=== PATIENT | male | born 1990 | race Caucasian/White ===

== ENCOUNTER 2017-06-09 13:27 | Emergency (ER) | payer BC ==
[2017-06-09 13:37] VITALS: BP 140/80
[2017-06-09] MEDS ORDERED: Albuterol/Ipratropium 3.0-0.5 MG/3 ML Neb Soln NEB ONE (13:41)
[2017-06-09] MEDS ORDERED: methylPREDNISolone Sodium Succinate 125 MG/2 ML SDV IM ONE (13:42)
--- NOTE | 2017-06-09 13:47 | EDM.PDOC ---
ED HPI GENERAL MEDICAL PROBLEM - General Chief Complaint: General Stated Complaint: dry cough, sinus pressure, throwing up, headache Time Seen by Provider: 06/09/17 13:41 Source of Information: Reports: Patient History Limitations: Reports: No Limitations - History of Present Illness INITIAL COMMENTS - FREE TEXT/NARRATIVE: 4 day history of sinus congestion, cough, body aches, irritated throat. Significant other developed similar symptoms yesterday. Smoker, 1ppd. Coughed so hard last night that he developed post-tussive emesis. No history of asthma. Patient is overweight and has HTN. Does not know exact dose of Lisinopril he uses. Feels more short of breath and has been wheezing. OTC meds do not help, including cough medicines. - Related Data Allergies Allergy/AdvReac Type Severity Reaction Status Date / Time Penicillins Allergy Hives Verified 06/09/17 13:29 Home Meds: Home Meds Lisinopril 60 mg PO DAILY 06/09/17 [History] Venlafaxine HCl [Venlafaxine ER] 1 cap PO DAILY 06/09/17 [History] Venlafaxine HCl [Venlafaxine ER] 1 cap PO DAILY 06/09/17 [History] Past Medical History Cardiovascular History: Reports: Hypertension Endocrine/Metabolic History: Reports: Obesity/BMI 30+ Social & Family History - Tobacco Use Smoking Status *Q: Current Every Day Smoker Packs/Tins Daily: 1 ED ROS GENERAL - Review of Systems Review Of Systems: See Below Constitutional: Reports: Malaise. Denies: Fever, Chills, Weakness, Night Sweats , Diaphoresis, Decreased Appetite, Weight Loss HEENT: Reports: Rhinitis, Sinus Problem, Throat Pain. Denies: Dental Pain, Ear Discharge, Ear Pain, Eye Discharge, Eye Pain, Nose Pain, Throat Swelling, Vertigo, Vision Change Respiratory: Reports: Shortness of Breath, Wheezing, Cough. Denies: Pleuritic Chest Pain, Sputum, Hemoptysis Cardiovascular: Reports: No Symptoms. Denies: Chest Pain, Lightheadedness GI/Abdominal: Reports: Vomiting (Post-tussive). Denies: Abdominal Pain, Constipation, Diarrhea, Hematemesis, Hematochezia, Nausea : Reports: No Symptoms Musculoskeletal: Reports: Other (generalized body aches) Skin: Reports: No Symptoms Neurological: Reports: No Symptoms Psychiatric: Reports: No Symptoms Hematologic/Lymphatic: Reports: No Symptoms ED EXAM, GENERAL - Physical Exam Exam: See Below Exam Limited By: No Limitations General Appearance: Alert, WD/WN, No Apparent Distress, Obese Eye Exam: Bilateral Eye: EOMI, PERRL Ears: Normal External Exam, Normal Canal, Hearing Grossly Normal, Other (both ears almost completely blocked by cerumen, TMs barely visable, no obvious erythema or fluid note. ) Nose: Normal Inspection. No: Nasal Swelling, Nasal Drainage Throat/Mouth: Normal Lips, Normal Gums, Normal Voice, No Airway Compromise, Other (very mild throat erythema, no exudate) Head: Atraumatic, Normocephalic Neck: Normal Inspection, Supple, Non-Tender, Full Range of Motion. No: Lymphadenopathy (L), Lymphadenopathy (R) Respiratory/Chest: No Respiratory Distress, Wheezing (mild, throughout all lung tobar). No: Crackles, Rales, Rhonchi, Stridor, Accessory Muscle Use, Retractions Cardiovascular: Regular Rate, Rhythm, No Murmur Peripheral Pulses: 2+: Radial (L), Radial (R) GI/Abdominal: Normal Bowel Sounds, Soft, Non-Tender, No Distention (Male) Exam: Deferred Rectal (Males) Exam: Deferred Back Exam: Normal Inspection. No: CVA Tenderness (L), CVA Tenderness (R), Muscle Spasm, Paraspinal Tenderness, Vertebral Tenderness Extremities: Normal Inspection, Normal Range of Motion, Normal Capillary Refill Neurological: Alert, Oriented, Normal Cognition, Normal Gait, No Motor/Sensory Deficits Psychiatric: Normal Affect, Normal Mood Skin Exam: Warm, Dry, Intact, Normal Color Course - Vital Signs Last Recorded V/S: Last Vital Signs Temp 36.9 C 06/09/17 13:36 Pulse 96 06/09/17 14:25 Resp 19 06/09/17 14:25 BP 140/80 06/09/17 13:36 Pulse Ox 93 L 06/09/17 14:25 - Orders/Labs/Meds Orders: Active Orders 24 hr Category Date Time Status RT Aerosol Therapy [RC] ASDIRECTED Care 06/09/17 13:41 Active Meds: Medications Discontinued Medications Generic Name Dose Route Start Last Admin Trade Name Freq PRN Reason Stop Dose Admin Albuterol/Ipratropium 3 ml 06/09/17 13:41 06/09/17 13:56 Duoneb 3.0-0.5 Mg/3 Ml NEB 06/09/17 13:42 3 ml ONETIME ONE Administration Methylprednisolone Sodium Succinate 125 mg 06/09/17 13:42 06/09/17 13:56 Solu-Medrol IM 06/09/17 13:43 125 mg ONETIME ONE Administration - Re-Assessments/Exams Free Text/Narrative Re-Assessment/Exam: 06/09/17 13:48 Viral respiratory illness suspected. Smoking cessation encouraged. Patient given neb in ER as well as Solu-medrol. Will send home with cough medication, albuterol MDI, and prednisone from ER. He is to follow up as needed. Extensive precautions discussed prior to discharge. Free Text/Narrative Re-Assessment/Exam: 06/09/17 14:18 Much improved after neb. Wheezing cleared completely. Patient O2 sats 93% when rechecked. He has no sensation of shortness of breath. Lower sats likely combination of acute respiratory illness, large body habitus, and smoking history. Again patient cautioned to return to ER for recheck if he has any sensation of worsening breathing. Departure - Departure Time of Disposition: 15:00 Disposition: Home, Self-Care 01 Condition: Good Clinical Impression: Viral respiratory illness, Bronchitis - Discharge Information Forms: ED Department Discharge Additional Instructions: Follow up Sunday or Sunday at your clinic if symptoms have not improved. Follow up in the ER if you have sudden worsening problems, such as worsening shortness of breath. Use inhaler 4 times a day for the next 7 days. You may use it every 4-6 hours as needed for cough/shortness of breath otherwise. Start Prednisone tomorrow, 4 pills daily for 5 days. Use cough medication as prescribed. Avoid using alcohol while taking the cough medication. - My Orders Last 24 Hours: My Active Orders 06/09/17 13:41 RT Aerosol Therapy [RC] ASDIRECTED - Assessment/Plan Last 24 Hours: My Active Orders 06/09/17 13:41 RT Aerosol Therapy [RC] ASDIRECTED
== END 2017-06-09 15:00 | disposition home or self-care (01) ==
LOC: LL.ED 13:27
DX: J40 Bronchitis, not specified as acute or chronic (principal); B34.9 Viral infection, unspecified; I10 Essential (primary) hypertension; F17.210 Nicotine dependence, cigarettes, uncomplicated; E66.9 Obesity, unspecified; Z88.0 Allergy status to penicillin; Z68.41 Body mass index [BMI] 40.0-44.9, adult
CPT/HCPCS: 94640; 96372; 99283; J2930

== ENCOUNTER 2017-07-23 01:13 | Emergency (ER) | payer BC, OTHER ==
[2017-07-23] MEDS ORDERED: Sodium Chloride 0.9% 10 ML Syringe FLUSH PRN (01:21)
[2017-07-23] MEDS ORDERED: Ondansetron 4 MG/2 ML SDV IVPUSH ONE (01:37)
[2017-07-23] MEDS ORDERED: Loperamide 2 MG Tab PO ONE (01:38)
--- NOTE | 2017-07-23 01:39 | EDM.PDOC ---
ED HPI GENERAL MEDICAL PROBLEM - General Chief Complaint: Chest Pain Stated Complaint: CP, dizziness, loose stools Time Seen by Provider: 07/23/17 01:28 Source of Information: Reports: Patient History Limitations: Reports: No Limitations - History of Present Illness INITIAL COMMENTS - FREE TEXT/NARRATIVE: Patient brought here from [facility] by EMS after he complained of feeling lightheaded with chest discomfort. Patient notes that he has not been feeling well over the night hours. He developed the lightheaded feeling first, followed by abdominal discomfort. Additionally he is generally achy. He did have centralized chest discomfort but that is now gone. No SOB. [place] warm at one point. No HEENT/Resp complaints. Has had three loose stools. No changes. No neuro changes. Abdomen Pain Score (Numeric/FACES): 7 - Related Data Allergies Allergy/AdvReac Type Severity Reaction Status Date / Time Penicillins Allergy Hives Verified 06/09/17 13:29 Home Meds: Home Meds Lisinopril 60 mg PO DAILY 06/09/17 [History] Venlafaxine HCl [Venlafaxine ER] 1 cap PO DAILY 06/09/17 [History] Venlafaxine HCl [Venlafaxine ER] 1 cap PO DAILY 06/09/17 [History] Aspirin [Pravin Chewable Aspirin] 81 mg PO ONETIME 07/23/17 [History] Past Medical History Cardiovascular History: Reports: Hypertension Respiratory History: Reports: COPD Gastrointestinal History: Reports: Irritable Bowel Syndrome (suspected) Endocrine/Metabolic History: Reports: Obesity/BMI 30+ Social & Family History - Family History Cardiac: Reports: CAD, High Cholesterol, Hypertension, [place] Respiratory: Reports: COPD Endocrine/Metabolic: Reports: Diabetes, type II, Obesity/MBI 30+ - Tobacco Use Smoking Status *Q: Current Every Day Smoker Years of Tobacco use: 7 Packs/Tins Daily: 1 Second Hand Smoke Exposure: Yes - Caffeine Use Caffeine Use: Reports: Soda - Recreational Drug Use Recreational Drug Use: No ED ROS GENERAL - Review of Systems Review Of Systems: See Below Constitutional: Reports: Other (one hot flash episode). Denies: Fever, Chills, Weakness, Fatigue, Night Sweats, Diaphoresis, Decreased Appetite, Weight Loss, Weight Gain HEENT: Denies: Ear Discharge, Ear Pain, Eye Discharge, Rhinitis, Sinus Problem, Throat Pain, Throat Swelling, Vertigo, Vision Change Respiratory: Reports: No Symptoms Cardiovascular: Reports: Chest Pain, Lightheadedness. Denies: Dyspnea on Exertion, Edema, Palpitations, Syncope GI/Abdominal: Reports: Abdominal Pain, Diarrhea, Nausea. Denies: Black Stool, Bloody Stool, Decreased Appetite, Vomiting : Reports: No Symptoms Musculoskeletal: Reports: Other (generalized achiness) Skin: Reports: No Symptoms Neurological: Reports: Dizziness. Denies: Confusion, Headache, Numbness, Paresthesia, Difficulty Walking, Weakness, Change in Speech, Gait Disturbance ED EXAM, GENERAL - Physical Exam Exam: See Below Exam Limited By: No Limitations General Appearance: Alert, WD/WN, No Apparent Distress Eye Exam: Bilateral Eye: EOMI, PERRL, Other (no nystagmus noted. ) Ears: Normal External Exam, Normal Canal, Hearing Grossly Normal, Other (TMs completely blocked by impacted wax) Nose: Normal Inspection Throat/Mouth: Normal Inspection, Normal Lips, Normal Oropharynx, Normal Voice, No Airway Compromise Head: Atraumatic, Normocephalic Neck: Normal Inspection, Supple, Non-Tender, Full Range of Motion Respiratory/Chest: No Respiratory Distress, Lungs Clear, Normal Breath Sounds, No Accessory Muscle Use, Chest Non-Tender Cardiovascular: Normal Peripheral Pulses, Regular Rate, Rhythm, No Edema, No Murmur Peripheral Pulses: 2+: Radial (L), Radial (R) GI/Abdominal: Normal Bowel Sounds (slightly increased), Soft, No Distention, Tender (mild discomfort with palpation above umbilicus). No: Guarding, Rigid, Rebound (Male) Exam: Deferred Rectal (Males) Exam: Deferred Back Exam: Normal Inspection. No: CVA Tenderness (L), CVA Tenderness (R), Muscle Spasm, Paraspinal Tenderness, Vertebral Tenderness Extremities: Normal Inspection, Normal Range of Motion, Non-Tender, No Pedal Edema, Normal Capillary Refill Neurological: Alert, Oriented, Normal Cognition, Normal Gait, Normal Reflexes, No Motor/Sensory Deficits Psychiatric: Normal Affect, Normal Mood Skin Exam: Warm, Dry, Intact, Normal Color EKG INTERPRETATION EKG Date: 07/23/17 Time: 01:23 Rhythm: NSR Rate (Beats/Min): 76 [place]: Normal P-Wave: Present QRS: Normal ST-T: Normal QT: Normal Comparison: NA - No Prior EKG Course - Vital Signs Last Recorded V/S: Last Vital Signs Temp 36.7 C 07/23/17 01:35 Pulse 97 07/23/17 01:35 Resp 12 07/23/17 01:35 BP 138/79 07/23/17 01:35 Pulse Ox 98 07/23/17 01:35 - Orders/Labs/Meds Orders: Active Orders 24 hr Category Date Time Status EKG Documentation Completion [RC] ASDIRECTED Care 07/23/17 01:23 Active Abdomen Series w Chest 1V [CR] Stat Exams 07/23/17 01:48 Ordered CKMB [CHEM] Stat Lab 07/23/17 01:20 Received COMPREHENSIVE METABOLIC PN,CMP [CHEM] Stat Lab 07/23/17 01:20 Received TROPONIN I [CHEM] Stat Lab 07/23/17 01:20 Received UA W/MICROSCOPIC [URIN] Stat Lab 07/23/17 01:53 Uncollected Sodium Chloride 0.9% [Saline Flush] Med 07/23/17 01:21 Active 10 ml FLUSH ASDIRECTED PRN Saline Lock Insert [OM.PC] Routine Oth 07/23/17 01:21 Ordered EKG 12 Lead [EK] Routine Ther 07/23/17 01:21 Ordered Medication Orders Sodium Chloride (Saline Flush) 10 ml FLUSH ASDIRECTED PRN PRN Reason: Keep Vein Open Last Admin: 07/23/17 01:41 Dose: 10 ml Labs: Laboratory Tests 07/23/17 07/23/17 07/23/17 Range/Units 01:20 01:20 01:20 WBC 9.2 (4.0-10.2) K/uL RBC 5.01 (4.33-5.41) M/uL Hgb 15.1 (13.1-16.8) g/dL Hct 43.5 (39.0-49.0) % MCV 86.8 (84.0-98.0) fL MCH 30.1 (28.2-33.3) pg MCHC 34.7 (31.7-36.0) g/dL RDW 12.2 (11.2-14.1) % Plt Count 195 (150-350) K/uL Neut % (Auto) 51.7 (45.0-80.0) % Lymph % (Auto) 37.4 (10.0-50.0) % [place] % (Auto) 7.8 (2.0-14.0) % Eos % (Auto) 2.8 (0.0-5.0) % Baso % (Auto) 0.3 (0.0-2.0) % Neut # (Auto) 4.74 (1.40-7.00) K/uL Lymph # (Auto) 3.43 (0.50-3.50) K/uL [place] # (Auto) 0.72 (0.00-1.00) K/uL Eos # (Auto) 0.26 (0.00-0.50) K/uL Baso # (Auto) 0.03 (0.00-0.20) K/uL D-Dimer, Quantitative < 100 (0-400) ng/mL Sodium 141 (136-145) mmol/L Potassium 4.3 (3.5-5.1) mmol/L Chloride 107 (98-107) mmol/L Carbon Dioxide 26.0 (21.0-32.0) mmol/L BUN 18 (7-18) mg/dL Creatinine 0.86 (0.51-1.17) mg/dL Est Cr Clr Drug Dosing 154.21 mL/min Estimated GFR (MDRD) > 60 mL/min Glucose 94 (74-106) mg/dL Calcium 9.0 (8.5-10.1) mg/dL Total Bilirubin 0.4 (0.2-1.0) mg/dL AST 43 H (15-37) U/L ALT 97 H (12-78) U/L Alkaline Phosphatase 64 (46-116) IU/L CK-MB (CK-2) 5.20 H* (0.00-3.60) ng/mL Troponin I 0.000 (0.000-0.056) ng/mL Total Protein 7.8 (6.4-8.2) g/dL Albumin 4.2 (3.4-5.0) g/dL Meds: Medications Generic Name Dose Route Start Last Admin Trade Name Freq PRN Reason Stop Dose Admin Sodium Chloride 10 ml 07/23/17 01:21 07/23/17 01:41 Saline Flush FLUSH 10 ml ASDIRECTED PRN Administration Keep Vein Open Discontinued Medications Generic Name Dose Route Start Last Admin Trade Name Freq PRN Reason Stop Dose Admin Ketorolac Tromethamine 30 mg 07/23/17 01:58 07/23/17 02:15 Toradol IVPUSH 07/23/17 01:59 30 mg ONETIME ONE Administration Loperamide HCl 4 mg 07/23/17 01:38 07/23/17 01:50 Imodium Ad PO 07/23/17 01:39 4 mg ONETIME ONE Administration Ondansetron HCl 4 mg 07/23/17 01:37 07/23/17 01:40 Zofran IVPUSH 07/23/17 01:38 4 mg ONETIME ONE Administration - Re-Assessments/Exams Free Text/Narrative Re-Assessment/Exam: 07/23/17 01:58 Zofran and Imodium given to patient. Denies chest pain/SOB. Comfortable in appearance but complains of 7/10 abdominal pain. Free Text/Narrative Re-Assessment/Exam: 07/23/17 02:35 Patient feels improved after Zofran and Toradol. Noted to have mild increase AST and ALT. Troponin zero. CKMB above normal. Elevated CKMB could have contribution from physical exertion at work and current generalized body aches. EKG unremarkable for acute change. DDimer negative. CBC and Chem otherwise unremarkable. Vital signs stable Patient says that he is under stress and wonders if it is part of the reason he does not feel good. He recently started working at [employer] and said that it this point he is not really liking his job. Stress may be factor in presentation. Given the generalized aches/abdominal discomfort/multiple loose stools/lightheadedness, it is also very likely that he has gastroenteritis. Patient says that he usually has a sore gut about three times a week, but did not say that there was associated loose stools. No official diagnosis of IBS or other bowel disorder. Recommendation for elimination diet and dietary change made, however patient was not interested in changing his diet. Recommendation made for admission and serial troponins/CKMB to more completely rule out cardiac contribution. Patient declined and said that he wished to return home. He is to follow up with his regular provider. He was taken off work for rest of tonight and next shift. He may return to full duty after that. If he is still having symptoms of Sunday, he is to get rechecked by his provider/clinic. Departure - Departure Time of Disposition: 02:29 Disposition: Home, Self-Care 01 Condition: Good Clinical Impression: Gastroenteritis, Stress Impacted ear wax Qualifiers: Laterality: bilateral Qualified Code(s): H61.23 - Impacted cerumen, bilateral - Discharge Information Instructions: Nonspecific Chest Pain, [id number] Forms: ED Department Discharge Additional Instructions: Home, rest. Watch for symptom changes. If this does not follow a normal viral course follow up for re-evaluation. If chest pain or shortness of breath develops, follow up in ER. Dietary recommendations strongly encouraged, as is smoking cessation. Make appointment to get ears irrigated. Follow up at primary clinic Sunday if symptoms persist and get rechecked. - My Orders Last 24 Hours: My Active Orders 07/23/17 01:20 CKMB [CHEM] Stat COMPREHENSIVE METABOLIC PN,CMP [CHEM] Stat TROPONIN I [CHEM] Stat 07/23/17 01:21 Sodium Chloride 0.9% [Saline Flush] 10 ml FLUSH ASDIRECTED PRN Saline Lock Insert [OM.PC] Routine EKG 12 Lead [EK] Routine 07/23/17 01:23 EKG Documentation Completion [RC] ASDIRECTED 07/23/17 01:48 Abdomen Series w Chest 1V [CR] Stat 07/23/17 01:53 UA W/MICROSCOPIC [URIN] Stat - Assessment/Plan Last 24 Hours: My Active Orders 07/23/17 01:20 CKMB [CHEM] Stat COMPREHENSIVE METABOLIC PN,CMP [CHEM] Stat TROPONIN I [CHEM] Stat 07/23/17 01:21 Sodium Chloride 0.9% [Saline Flush] 10 ml FLUSH ASDIRECTED PRN Saline Lock Insert [OM.PC] Routine EKG 12 Lead [EK] Routine 07/23/17 01:23 EKG Documentation Completion [RC] ASDIRECTED 07/23/17 01:48 Abdomen Series w Chest 1V [CR] Stat 07/23/17 01:53 UA W/MICROSCOPIC [URIN] Stat
[2017-07-23 01:56] LABS: CHLORIDE,CL 107 mmol/L (98-107); SODIUM,NA 141 mmol/L (136-145)
[2017-07-23] MEDS ORDERED: Ketorolac 30 MG/ML SDV IVPUSH ONE (01:58)
[2017-07-23 03:32] VITALS: BP 123/77
== END 2017-07-23 02:50 | disposition home or self-care (01) ==
LOC: LL.ED 01:13
DX: K52.9 Noninfective gastroenteritis and colitis, unspecified (principal); H61.23 Impacted cerumen, bilateral; F43.9 Reaction to severe stress, unspecified; I10 Essential (primary) hypertension; J44.9 Chronic obstructive pulmonary disease, unspecified; F17.210 Nicotine dependence, cigarettes, uncomplicated; Z79.82 Long term (current) use of aspirin; Z79.899 Other long term (current) drug therapy; Z88.0 Allergy status to penicillin
CPT/HCPCS: 36415; 74022; 80053; 82553; 84484; 85025; 85379; 93005; 96374; 96375; 99285; A9270; J1885; J2405; J7050

== ENCOUNTER 2020-07-24 06:54 | Emergency (ER) | payer BC, MEDICAID, OTHER ==
[2020-07-24 07:04] VITALS: BP 140/89; PULSE 104
--- NOTE | 2020-07-24 07:25 | EDM.PDOC ---
ED HPI GENERAL MEDICAL PROBLEM - General Chief Complaint: General Stated Complaint: CHEST CONGESTION, DRY COUGH, LUMP ON NECK Time Seen by Provider: 07/24/20 07:10 Source of Information: Reports: Patient History Limitations: Reports: No Limitations - History of Present Illness INITIAL COMMENTS - FREE TEXT/NARRATIVE: He presents to the emergency department for evaluation of a lump on the back of his neck. He has a tender mass the base of the neck on the right side has been present for 5 days, gradually increasing in size. He has a history of infected cysts in the past that required I&D. It is painful when he moves his head and very sensitive to touch. He has not noted any drainage. Is also complaining of nonproductive cough for 5 days. He does get some posttussive dry heaves. Mild nasal congestion. No drainage. No sore throat. Mild sinus pressure. No chest pain or tightness. No shortness of breath. He was tested for Covid 2 weeks ago and was negative. His son was found to have viral pneumonia 5 days ago. 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 Neck Pain Score (Numeric/FACES): 5 - Related Data Allergies Allergy/AdvReac Type Severity Reaction Status Date / Time Penicillins Allergy Hives Verified 06/09/17 13:29 Home Meds: Home Meds Lisinopril 60 mg PO DAILY 06/09/17 [History] Venlafaxine HCl [Venlafaxine ER] 1 cap PO DAILY 06/09/17 [History] Venlafaxine HCl [Venlafaxine ER] 1 cap PO DAILY 06/09/17 [History] Albuterol [Ventolin HFA] 1 puff INH ASDIRECTED PRN 08/06/18 [History] buPROPion [buPROPion XL] 1 tab PO DAILY 08/06/18 [History] Past Medical History HEENT History: Reports: Impaired Vision Cardiovascular History: Reports: Hypertension Respiratory History: Reports: COPD Gastrointestinal History: Reports: Irritable Bowel Syndrome (suspected) Genitourinary History: Reports: None Musculoskeletal History: Reports: Back Pain, Chronic Neurological History: Reports: None Psychiatric History: Reports: Anxiety, Depression, Suicidal Ideation, Other (See Below) Other Psychiatric History: 2012- inpatient hospitalization suicidal ideation Endocrine/Metabolic History: Reports: Obesity/BMI 30+ Hematologic History: Reports: None Immunologic History: Reports: None Oncologic (Cancer) History: Reports: None Dermatologic History: Reports: None - Infectious Disease History Infectious Disease History: Reports: None - Past Surgical History HEENT Surgical History: Reports: Myringotomy w Tube(s) Musculoskeletal Surgical History: Reports: Other (See Below) Other Musculoskeletal Surgeries/Procedures:: lumbar surgery 2014 Social & Family History - Family History Cardiac: Reports: CAD, High Cholesterol, Hypertension, [place] Respiratory: Reports: COPD Endocrine/Metabolic: Reports: Diabetes, type II, Obesity/MBI 30+ - Caffeine Use Caffeine Use: Reports: Soda ED ROS GENERAL - Review of Systems Review Of Systems: See Below Constitutional: Denies: Fever, Chills HEENT: Reports: Sinus Problem. Denies: Ear Pain Respiratory: Reports: Cough. Denies: Shortness of Breath, Wheezing, Sputum Cardiovascular: Denies: Chest Pain, Edema, Palpitations Endocrine: Denies: Fatigue GI/Abdominal: Denies: Abdominal Pain, Nausea, Vomiting : Denies: Dysuria, Frequency Skin: Reports: Lumps (See HPI) Neurological: Denies: Dizziness, Headache Psychiatric: Denies: Anxiety, Depression ED EXAM, GENERAL - Physical Exam Exam: See Below Exam Limited By: No Limitations General Appearance: Alert, WD/WN Ears: Normal External Exam Nose: Normal Mucosa. No: Nasal Swelling Throat/Mouth: Normal Inspection, Normal Teeth, Normal Oropharynx, No Airway Compromise Head: Atraumatic, Normocephalic Neck: Full Range of Motion Respiratory/Chest: No Respiratory Distress, Lungs Clear, Normal Breath Sounds Cardiovascular: Regular Rate, Rhythm, No Murmur Skin Exam: Other (3 x 5 cm oval, raised, fluctuant, tender, reddened lump at the base of the neck slightly right of midline. This is consistent with an abscess.) Lymphatic: No Adenopathy Course - Vital Signs Text/Narrative:: Discussed options regarding the abscess and he did wish to proceed with the I&D. The area is cleansed with alcohol and infiltrated with 4 cc of 2% lidocaine with epinephrine. He was cleansed again. Incision was made with a #11 scalpel. A curved clamp was used for blunt dissection and a large amount of yellowish- green foul-smelling exudative material was removed. The cyst was irrigated with normal saline to clear blood tinged return. It was packed with iodoform gauze and a dressing applied. There were no complications. Last Recorded V/S: Last Vital Signs Temp 36.8 C 07/24/20 06:57 Pulse 104 H 07/24/20 06:57 Resp 20 07/24/20 06:57 BP 140/89 07/24/20 06:57 Pulse Ox 99 07/24/20 06:57 - Orders/Labs/Meds Meds: Medications Discontinued Medications Generic Name Dose Route Start Last Admin Trade Name Chris PRN Reason Stop Dose Admin Lidocaine/Epinephrine 20 ml 07/24/20 07:21 07/24/20 07:30 Xylocaine 2% With Epinephrine 1:100,000 INJECT 07/24/20 07:22 20 ml ONETIME ONE Administration Departure - Departure Time of Disposition: 07:55 Disposition: Home, Self-Care 01 Condition: Good Clinical Impression: Abscess of skin of neck, Viral URI, Viral respiratory illness - Discharge Information *PRESCRIPTION DRUG MONITORING PROGRAM REVIEWED*: No *COPY OF PRESCRIPTION DRUG MONITORING REPORT IN PATIENT ED: No Instructions: Skin Abscess, Incision and Drainage, Care After, Cough, Adult, [id number] Forms: ED Department Discharge Additional Instructions: He is encouraged to push fluids and can use an [id number] cough and cold medicine. He should return to the emergency department tomorrow morning for repacking of the cyst. Follow-up earlier with any problems. Sepsis Event Note (ED) - Evaluation Sepsis Screening Result: No Definite Risk - Focused Exam Vital Signs: Vital Signs Temp Pulse Resp BP Pulse Ox 07/24/20 06:57 36.8 C 104 H 20 140/89 99
[2020-07-24] MEDS: Lidocaine 2% with EPINEPHrine 1:100,000 20 ML MDV INJECT ONE (07:30)
== END 2020-07-24 08:10 | disposition home or self-care (01) ==
LOC: LL.ED 06:54
DX: L02.11 Cutaneous abscess of neck (principal); J06.9 Acute upper respiratory infection, unspecified; I10 Essential (primary) hypertension; J44.9 Chronic obstructive pulmonary disease, unspecified; F41.9 Anxiety disorder, unspecified; F32.9 Major depressive disorder, single episode, unspecified; E66.9 Obesity, unspecified; Z88.0 Allergy status to penicillin
CPT/HCPCS: 10060; 99283-25

== ENCOUNTER 2020-11-25 11:08 | Day surgery (SDC) | payer MEDICAID ==
[~2020-11-25 11:08] MED LIST: Ketamine 500 mg/10 ML MDV ONE; Midazolam 1 MG/ML 2 ML SDV ONE; Propofol 200 MG/20 ML SDV ONE
[2020-11-25] MEDS ORDERED: Sodium Chloride 0.9% 10 ML Syringe FLUSH PRN (11:15)
[2020-11-25] MEDS ORDERED: Lactated Ringers 1,000 ML IV SCH (11:15)
[2020-11-25] MEDS ORDERED: Glycopyrrolate 0.2 MG/ML SDV IVPUSH ONE (13:00)
[2020-11-25] MEDS ORDERED: Ketamine 500 mg/10 ML MDV IV ONE (13:00)
[2020-11-25] MEDS ORDERED: Lidocaine 2% 5 ML SDV ONE (13:00)
--- NOTE | 2020-11-25 13:00 | PCM.PN ---
- General Info Date of Service: 11/25/20 - Review of Systems Systems Review Comment:: 30-year-old male with recent significant unexplained weight loss and positive fit test is referred for EGD and colonoscopy. He is medically stable to proceed today. His recent history and physical is reviewed and no significant changes are noted. I have discussed the proposed upper and lower endoscopy with the patient. Risks such as but not limited to bleeding and GI injury reviewed. He agrees to proceed. - Patient Data Vitals - Most Recent: Last Vital Signs Temp 97.4 F 11/25/20 11:52 Pulse Resp 20 11/25/20 11:52 BP 116/68 11/25/20 11:52 Pulse Ox 96 11/25/20 11:52 Weight - Most Recent: 162.386 kg Lab Results Last 24 Hours: Laboratory Results - last 24 hr 11/25/20 Range/Units 11:49 POC Glucose 130 H (65-110) mg/dl Med Orders - Current: Current Medications Lactated Ringer's (Ringers, Lactated) 1,000 mls @ 125 mls/hr IV ASDIRECTED RODRIGUEZ Last Admin: 11/25/20 12:05 Dose: 125 mls/hr Documented by: Sodium Chloride (Saline Flush) 10 ml FLUSH ASDIRECTED PRN PRN Reason: Keep Vein Open Discontinued Medications Ketamine HCl (Ketalar) Confirm Administered Dose 500 mg .ROUTE .STK-MED ONE Stop: 11/25/20 08:59 Midazolam HCl (Versed 1 Mg/Ml) Confirm Administered Dose 4 mg .ROUTE .STK-MED ONE Stop: 11/25/20 08:59 Propofol (Diprivan 20 Ml) Confirm Administered Dose 600 mg .ROUTE .STK-MED ONE Stop: 11/25/20 08:59 - Patient Data Lab Results Last 24 hrs: Laboratory Results - last 24 hr 11/25/20 Range/Units 11:49 POC Glucose 130 H (65-110) mg/dl Sepsis Event Note - Focused Exam Vital Signs: Vital Signs Temp Resp BP Pulse Ox 11/25/20 11:52 97.4 F 20 116/68 96 - Problem List Review Problem List Initiated/Reviewed/Updated: Yes - My Orders Last 24 Hours: My Active Orders 11/25/20 11:15 Patient Status [ADT] Routine Blood Glucose Check, Bedside [RC] ONETIME Peripheral IV Care [RC] . DIRECTED Verify Patient Consent Obtain [RC] ASDIRECTED Lactated Ringers [Ringers, Lactated] 1,000 ml IV ASDIRECTED Sodium Chloride 0.9% [Saline Flush] 10 ml FLUSH ASDIRECTED PRN Peripheral IV Insertion Adult [OM.PC] Routine - Assessment Assessment:: Positive fit test Unexplained weight loss - Plan Plan:: EGD and colonoscopy
--- NOTE | 2020-11-25 13:57 | PCM.OPNOTE ---
- General Post-Op/Procedure Note Date of Surgery/Procedure: 11/25/20 Operative Procedure(s): EGD and Colonoscopy with Polypectomy Findings: Normal appearing EGD Small Sigmoid Colon Polyp Pre Op Diagnosis: Weight Loss. + FIT Test Post-Op Diagnosis: Normal EGD. Colon Polyp Anesthesia Technique: MAC Primary Surgeon: Jose Muñiz Pathology: Sigmoid Colon Polyp EBL in mLs: 0 Complications: None Condition: Good
--- NOTE | 2020-11-25 14:49 | OR ---
Date of Procedure: 11/25/2020 PREOPERATIVE DIAGNOSIS: Positive FIT test and weight loss. POSTOPERATIVE DIAGNOSIS: Normal upper endoscopy and sigmoid colon polyp. OPERATION PERFORMED: Esophagogastroduodenoscopy and colonoscopy with polypectomy. INDICATIONS FOR SURGERY: This 30-year-old male has experienced approximately 40 pounds weight loss, which was unexplained. He also has recently been identified to have a positive FIT test. FINDINGS: On upper endoscopy, the lining of the esophagus, stomach, and the duodenum appeared normal. No visible signs of bleeding or other lesions were identified. On colonoscopy, the patient did have one small sigmoid colon polyp, 6 mm in size, semipedunculated in shape and located approximately 20 cm from the anal verge. The remainder of the colon and terminal ileum appeared normal. DESCRIPTION OF PROCEDURE: The patient was taken to the operating room. He was given intravenous sedation, and with him in the left lateral decubitus position, the Olympus gastroscope was advanced through a mouth guard into the oral cavity. Under direct visualization, the scope was advanced through the oropharynx into the esophagus and then down through the esophagus, stomach, and into the duodenum, where examination to the fourth portion was performed. Carefully, the duodenum was examined and the scope was withdrawn back into the stomach where full examination including retroflexed examination of the fundus was carried out. The GE junction and esophagus were re-examined as the scope was removed. Attention was turned to colonoscopy. Digital rectal exam was performed showing no rectal masses. The Olympus colonoscope was inserted into the rectum. Retroflexed examination of the rectal canal was performed. The scope was then carefully advanced under direct visualization through the entire length of the colon until cecum was reached. Cecal acquisition was confirmed by noting the normal internal cecal anatomy including the appendiceal orifice and the ileocecal valve. The ileocecal valve was cannulated and the terminal ileum examined and appeared normal. The scope was then slowly withdrawn sequentially re-examining the colonic segments. In the sigmoid colon, the above-described polyp was identified. This was removed with a cautery snare and retrieved into a polyp trap. The examination was then completed, and with no sign of any bleeding or other complication, the scope was removed, and the patient was taken from the operating room in satisfactory condition. ESTIMATED BLOOD LOSS: Zero. COMPLICATIONS: None. PROGNOSIS: Good. GOLDEN Muñiz MD /[id number]
[2020-11-25 15:16] VITALS: BP 97/55; PULSE 98
== END 2020-11-25 14:48 | disposition home or self-care (01) ==
LOC: LL.SDS 11:08
PROVIDERS: ATTEND Surgery
DX: K63.5 Polyp of colon (principal); I10 Essential (primary) hypertension; E78.5 Hyperlipidemia, unspecified; E11.9 Type 2 diabetes mellitus without complications; E66.01 Morbid (severe) obesity due to excess calories; F17.210 Nicotine dependence, cigarettes, uncomplicated; K21.9 Gastro-esophageal reflux disease without esophagitis; Z01.812 Encounter for preprocedural laboratory examination; Z20.822 Contact with and (suspected) exposure to COVID-19; Z79.84 Long term (current) use of oral hypoglycemic drugs; Z79.899 Other long term (current) drug therapy; Z88.0 Allergy status to penicillin; Z68.42 Body mass index [BMI] 45.0-49.9, adult
CPT/HCPCS: 00813; 82962; J2250; J2704; J3490; J7120; U0002

== ENCOUNTER 2021-01-03 22:25 | Observation (INO) | payer MEDICAID ==
[2021-01-03] MEDS ORDERED: methylPREDNISolone Sodium Succinate 125 MG/2 ML SDV IVPUSH ONE (22:52)
[2021-01-03] MEDS ORDERED: Ketorolac 30 MG/ML SDV IVPUSH ONE (22:53)
--- NOTE | 2021-01-03 22:57 | EDM.PDOC ---
ED HPI GENERAL MEDICAL PROBLEM - General Chief Complaint: Back Pain or Injury Stated Complaint: Back Pain Time Seen by Provider: 01/03/21 22:51 Source of Information: Reports: Patient History Limitations: Reports: No Limitations - History of Present Illness INITIAL COMMENTS - FREE TEXT/NARRATIVE: Patient comes to ER with acute flare of chronic low back pain with right sciatica. Is being followed by [facility]. Has previous back surgery history. Was told that the two discs above the surgery site may now be pushing on some nerves. Improved with steroid injection which was received about 3 months ago. No increased numbness but has been having some in right anterior velez with the back issues. No loss bowel/bladder control. Was feeling well throughout day. Had sudden sharp stabbing pain this evening in left lumbar area. Now has 10/10 pain with any movement. Pain is a zero if he lays flat and still. Came by EMS. Pattern of pain is similar to previous episodes. No acute changes. Lower Back Pain Score (Numeric/FACES): 10 - Related Data Allergies Allergy/AdvReac Type Severity Reaction Status Date / Time Penicillins Allergy Hives Verified 01/03/21 22:26 Home Meds: Home Meds Lisinopril 40 mg PO DAILY 06/09/17 [History] DULoxetine HCl [Cymbalta] 120 mg PO DAILY 11/25/20 [History] Gabapentin [Neurontin] 300 mg PO 08,14 11/25/20 [History] Gabapentin [Neurontin] 600 mg PO BEDTIME 11/25/20 [History] Hydrocodone/Acetaminophen [Hydrocodone-Acetamin 5-325 mg] 1 each PO Q4HR PRN 11/25/20 [History] Metoprolol Succinate [Toprol XL] 25 mg PO DAILY 11/25/20 [History] atorvaSTATin Calcium [Lipitor] 10 mg PO DAILY 11/25/20 [History] clonazePAM [Klonopin] 1 mg PO BID 11/25/20 [History] hydroCHLOROthiazide [Hydrochlorothiazide] 50 mg PO DAILY 11/25/20 [History] metFORMIN [Glucophage XR] 1,000 mg PO BIDMEALS 11/25/20 [History] Ibuprofen [Advil] 600 mg PO BID PRN 01/03/21 [History] Multivitamin [Multi-Vitamin Daily] 1 tab PO DAILY 01/03/21 [History] busPIRone HCl [Buspirone HCl] 15 mg PO TID 01/03/21 [History] Past Medical History HEENT History: Reports: Impaired Vision Cardiovascular History: Reports: High Cholesterol, Hypertension Respiratory History: Reports: COPD Gastrointestinal History: Reports: Irritable Bowel Syndrome Genitourinary History: Reports: None Musculoskeletal History: Reports: Back Pain, Chronic Neurological History: Reports: None Psychiatric History: Reports: Addiction, Anxiety, Depression, Panic Attack Other Psychiatric History: 2012- inpatient hospitalization suicidal ideation Endocrine/Metabolic History: Reports: Diabetes, Type II, Obesity/BMI 30+ Hematologic History: Reports: None Immunologic History: Reports: None Oncologic (Cancer) History: Reports: None Dermatologic History: Reports: None - Infectious Disease History Infectious Disease History: Reports: None - Past Surgical History HEENT Surgical History: Reports: Myringotomy w Tube(s) Musculoskeletal Surgical History: Reports: Other (See Below) Other Musculoskeletal Surgeries/Procedures:: spinal fusion Social & Family History - Family History Cardiac: Reports: CAD, High Cholesterol, Hypertension, DC Respiratory: Reports: COPD Endocrine/Metabolic: Reports: Diabetes, type II, Obesity/MBI 30+ - Tobacco Use Tobacco Use Status *Q: Current Every Day Tobacco User Years of Tobacco use: 10 Packs/Tins Daily: 1 - Caffeine Use Caffeine Use: Reports: Soda - Recreational Drug Use Recreational Drug Use: No ED ROS GENERAL - Review of Systems Review Of Systems: Comprehensive ROS is negative, except as noted in HPI. ED EXAM, GENERAL - Physical Exam Exam: See Below Exam Limited By: Other (back pain with movement.) General Appearance: Alert, No Apparent Distress (while laying still/flat on back), Obese Eye Exam: Bilateral Eye: EOMI, PERRL Ears: Hearing Grossly Normal Nose: No: Nasal Deformity, Nasal Swelling, Nasal Drainage Throat/Mouth: Normal Lips, Normal Voice, No Airway Compromise Head: Atraumatic, Normocephalic Neck: Normal Inspection, Supple, Non-Tender, Full Range of Motion Respiratory/Chest: No Respiratory Distress, Lungs Clear, Normal Breath Sounds, No Accessory Muscle Use, Chest Non-Tender Cardiovascular: Normal Peripheral Pulses, Regular Rate, Rhythm, No Murmur GI/Abdominal: Normal Bowel Sounds, Soft (obese), No Distention (Male) Exam: Deferred Rectal (Males) Exam: Deferred Extremities: Other (tender left lower back area) Neurological: Alert, Oriented, Normal Cognition, Normal Reflexes, Other (negative straight leg raises. Able to lift legs on own to 45 degree angle without obvious tenderness. Equal tone/strength limbs. Subjective decreased light touch sensation anterior right velez. ) Psychiatric: Normal Affect, Normal Mood Skin Exam: Warm, Dry, Intact, Normal Color Course - Vital Signs Last Recorded V/S: Last Vital Signs Temp 37.1 C 01/03/21 22:27 Pulse 81 01/03/21 22:27 Resp 18 01/03/21 22:27 BP 123/61 01/03/21 22:27 Pulse Ox 100 01/03/21 22:27 - Orders/Labs/Meds Orders: Active Orders 24 hr Category Date Time Status CBC WITH AUTO DIFF [HEME] AM Lab 01/04/21 05:15 Ordered COMPREHENSIVE METABOLIC PN,CMP [CHEM] AM Lab 01/04/21 05:11 Ordered MAGNESIUM [CHEM] AM Lab 01/04/21 05:11 Ordered Sodium Chloride 0.9% [Saline Flush] Med 01/03/21 22:51 Ordered 10 ml FLUSH ASDIRECTED PRN Saline Lock Insert [OM.PC] Routine Oth 01/03/21 22:51 Ordered Medication Orders Sodium Chloride (Sodium Chloride 0.9% 10 Ml Syringe) 10 ml FLUSH ASDIRECTED PRN PRN Reason: Keep Vein Open Meds: Medications Generic Name Dose Route Start Last Admin Trade Name Freq PRN Reason Stop Dose Admin Sodium Chloride 10 ml 01/03/21 22:51 Sodium Chloride 0.9% 10 Ml Syringe FLUSH ASDIRECTED PRN Keep Vein Open - Re-Assessments/Exams Free Text/Narrative Re-Assessment/Exam: 01/03/21 23:00 Admit observation for pain control. May need transfer to [facility] for further evaluation/MRI depending on clinical course. Departure - Departure Time of Disposition: 23:01 Disposition: Refer to Observation Condition: Good Clinical Impression: Low back pain with right-sided sciatica Qualifiers: Chronicity: chronic Back pain laterality: right Qualified Code(s): M54.41 - Lumbago with sciatica, right side; G89.29 - Other chronic pain - Discharge Information *PRESCRIPTION DRUG MONITORING PROGRAM REVIEWED*: Not Applicable *COPY OF PRESCRIPTION DRUG MONITORING REPORT IN PATIENT ED: Not Applicable Referrals: Layla Leonardo [facility] PERSON [Primary Care Provider] - Sepsis Event Note (ED) - Evaluation Sepsis Screening Result: No Definite Risk - Focused Exam Vital Signs: Vital Signs Temp Pulse Resp BP Pulse Ox 01/03/21 22:27 37.1 C 81 18 123/61 100 - Problem List & Annotations (1) Low back pain with right-sided sciatica SNOMED Code(s): 135216738 Code(s): M54.41 - LUMBAGO WITH SCIATICA, RIGHT SIDE Status: Chronic Priority: High Annotation/Comment:: Acute exacerbation. Solu-Medrol and pain medication given in ER. Admit observation. Patient currently unable to perform ADLs Qualifiers: Chronicity: chronic Back pain laterality: right Qualified Code(s): M54.41 - Lumbago with sciatica, right side; G89.29 - Other chronic pain (2) Hypertension SNOMED Code(s): 70744072 Code(s): I10 - ESSENTIAL (PRIMARY) HYPERTENSION Status: Chronic Priority: Low Annotation/Comment:: Observe trends Qualifiers: Hypertension type: essential hypertension Qualified Code(s): I10 - Essential (primary) hypertension (3) Obesity SNOMED Code(s): 432277152, 046125268 Code(s): E66.9 - OBESITY, UNSPECIFIED Status: Chronic Priority: Medium Annotation/Comment:: Patient is currently improving his eating patterns and has been losing weight. Qualifiers: Obesity type: unspecified obesity type Serious obesity comorbidity presence: unspecified whether serious comorbidity present Body mass index: unspecified BMI (4) Diabetes mellitus type 2 in obese SNOMED Code(s): 86568204 Code(s): E11.69 - TYPE 2 DIABETES MELLITUS WITH OTHER SPECIFIED COMPLICATION; E66.9 - OBESITY, UNSPECIFIED Status: Chronic Priority: Low Annotation/Comment:: Currently taking Metformin (5) Depression with anxiety SNOMED Code(s): 782091835 Code(s): F41.8 - OTHER SPECIFIED ANXIETY DISORDERS Status: Chronic Priority: Low Annotation/Comment:: Under therapy/stable by history (6) Panic attacks SNOMED Code(s): 956563503 Code(s): F41.0 - PANIC DISORDER [EPISODIC PAROXYSMAL ANXIETY] Status: Chronic Priority: Low Annotation/Comment:: Under therapy/stable by history (7) IBS (irritable bowel syndrome) SNOMED Code(s): 30646410 Code(s): K58.9 - IRRITABLE BOWEL SYNDROME WITHOUT DIARRHEA Status: Chronic Priority: Low Annotation/Comment:: Stable by history Qualifiers: Irritable bowel syndrome type: unspecified Qualified Code(s): K58.9 - Irritable bowel syndrome without diarrhea (8) Hyperlipidemia SNOMED Code(s): 41386235 Code(s): E78.5 - HYPERLIPIDEMIA, UNSPECIFIED Status: Chronic Priority: Low Annotation/Comment:: Under therapy Qualifiers: Hyperlipidemia type: unspecified Qualified Code(s): E78.5 - Hyperlipidemia, unspecified - Problem List Review Problem List Initiated/Reviewed/Updated: Yes - My Orders Last 24 Hours: My Active Orders 01/03/21 22:51 Sodium Chloride 0.9% [Saline Flush] 10 ml FLUSH ASDIRECTED PRN Saline Lock Insert [OM.PC] Routine 01/04/21 05:11 COMPREHENSIVE METABOLIC PN,CMP [CHEM] AM MAGNESIUM [CHEM] AM 01/04/21 05:15 CBC WITH AUTO DIFF [HEME] AM - Assessment/Plan Admission H&P: Please use this note as an admission H&P Last 24 Hours: My Active Orders 01/03/21 22:51 Sodium Chloride 0.9% [Saline Flush] 10 ml FLUSH ASDIRECTED PRN Saline Lock Insert [OM.PC] Routine 01/04/21 05:11 COMPREHENSIVE METABOLIC PN,CMP [CHEM] AM MAGNESIUM [CHEM] AM 01/04/21 05:15 CBC WITH AUTO DIFF [HEME] AM Assessment:: as above. Stable and suitable for general supervision Plan: as above.
[2021-01-03] MEDS: Sodium Chloride 0.9% 10 ML Syringe FLUSH PRN (23:08)
[2021-01-03] MEDS ORDERED: Acetaminophen 325 MG Tab PO PRN (23:43)
[2021-01-03] MEDS ORDERED: Morphine 4 MG/ML Syringe IVPUSH PRN (23:45)
[2021-01-03] MEDS ORDERED: Sodium Chloride 0.9% 1,000 ML IV SCH (23:45)
[2021-01-03] MEDS ORDERED: Diazepam 5 MG Tab PO ONE (23:47)
[2021-01-04] MEDS ORDERED: Gabapentin 300 MG Cap PO SCH ×2 (00:15→08:00)
[2021-01-04] MEDS ORDERED: Ketorolac 30 MG/ML SDV IVPUSH PRN (05:00)
[2021-01-04 07:29] VITALS: BP 114/71
[2021-01-04 07:30] VITALS: PULSE 80
[2021-01-04] MEDS: busPIRone 15 MG Tab PO SCH ×2 (07:30→11:42)
[2021-01-04] MEDS ORDERED: metFORMIN 500 MG Tab PO SCH ×2 (07:30)
[2021-01-04 07:44] LABS: CHLORIDE,CL 102 mmol/L (98-107); SODIUM,NA 138 mmol/L (136-145)
[2021-01-04] MEDS ORDERED: DULoxetine 30 MG Cap PO SCH (08:00)
[2021-01-04] MEDS ORDERED: Metoprolol Succinate 25 MG Tab.ER PO SCH (08:00)
[2021-01-04] MEDS ORDERED: atorvaSTATin 10 MG Tab PO SCH (08:00)
[2021-01-04] MEDS ORDERED: Lisinopril 20 MG Tab PO SCH (08:00)
[2021-01-04] MEDS ORDERED: Hydrochlorothiazide 25 MG Tab PO SCH (08:00)
[2021-01-04] MEDS: Sodium Chloride 0.9% 10 ML Syringe FLUSH PRN ×2 (12:24→13:47)
--- NOTE | 2021-01-04 13:03 | PCM.DCSUM1 ---
Discharge Summary - Hospital Course Brief History: Patient admitted for pain control due to acute exacerbation low back pain/right sciatica Diagnosis: Stroke: No - Discharge Data Discharge Date: 01/04/21 Discharge Disposition: DC/Tfer to Acute Hospital 02 Condition: Good - Referral to Home Health Primary Care Physician: Layla Leonardo [employer]ERCIAL LENDING ASSISTANT - Discharge Diagnosis/Problem(s) (1) Low back pain with right-sided sciatica SNOMED Code(s): 420842365 ICD Code: M54.41 - LUMBAGO WITH SCIATICA, RIGHT SIDE Status: Chronic Priority: High Current Visit: No Problem Details: Acute exacerbation. Solu- Medrol and pain medication given in ER. Received Toradol and MS overnight. Appeared to be significantly improved this morning. New exacerbation when he bent over to put on shoes. Hx of disc disease lumbar area and previous surgery. Did have pain injections in lower back approximately three months ago. Qualifiers: Chronicity: chronic Back pain laterality: right Qualified Code(s): M54.41 - Lumbago with sciatica, right side; G89.29 - Other chronic pain (2) Hypertension SNOMED Code(s): 86372298 ICD Code: I10 - ESSENTIAL (PRIMARY) HYPERTENSION Status: Chronic Priority: Low Current Visit: No Problem Details: Has been stable Qualifiers: Hypertension type: essential hypertension Qualified Code(s): I10 - Essential (primary) hypertension (3) Obesity SNOMED Code(s): 526546149, 263662821 ICD Code: E66.9 - OBESITY, UNSPECIFIED Status: Chronic Priority: Medium Current Visit: No Problem Details: Patient is currently improving his eating patterns and has been losing weight. Qualifiers: Obesity type: unspecified obesity type Serious obesity comorbidity presence: unspecified whether serious comorbidity present Body mass index: unspecified BMI (4) Diabetes mellitus type 2 in obese SNOMED Code(s): 28807423 ICD Code: E11.69 - TYPE 2 DIABETES MELLITUS WITH OTHER SPECIFIED COMPLICATION; E66.9 - OBESITY, UNSPECIFIED Status: Chronic Priority: Low Current Visit: No Problem Details: Currently taking Metformin (5) Depression with anxiety SNOMED Code(s): 936177760 ICD Code: F41.8 - OTHER SPECIFIED ANXIETY DISORDERS Status: Chronic Priority: Low Current Visit: No Problem Details: Under therapy/stable by history (6) Panic attacks SNOMED Code(s): 408305171 ICD Code: F41.0 - PANIC DISORDER [EPISODIC PAROXYSMAL ANXIETY] Status: Chronic Priority: Low Current Visit: No Problem Details: Under therapy/stable by history (7) IBS (irritable bowel syndrome) SNOMED Code(s): 15989874 ICD Code: K58.9 - IRRITABLE BOWEL SYNDROME WITHOUT DIARRHEA Status: Chronic Priority: Low Current Visit: No Problem Details: Stable by history Qualifiers: Irritable bowel syndrome type: unspecified Qualified Code(s): K58.9 - Irritable bowel syndrome without diarrhea (8) Hyperlipidemia SNOMED Code(s): 52057931 ICD Code: E78.5 - HYPERLIPIDEMIA, UNSPECIFIED Status: Chronic Priority: Low Current Visit: No Problem Details: Under therapy Qualifiers: Hyperlipidemia type: unspecified Qualified Code(s): E78.5 - Hyperlipidemia, unspecified - Patient Summary/Data Hospital Course: Patient's pain complaint improved when rechecked this morning. Able to get out of bed and to bathroom. Walked halls and said overall pain improved and able to get around reasonably well. Initially plan was to discharge patient home with follow up at [facility] for new MRI/pain injection/other planning as needed. Patient bent over to put on shoes and felt another popping sensation in lumbar area and immediate severe/burning pain. Majority of discomfort is radiating down right leg. No loss bowel/bladder function. Is again unable to sit up/ambulate and must lay flat for best comfort. Because of this, call placed to [facility] to discuss transfer so that patient can obtain MRI and Neurosurgery consult. Patient accepted for transfer by . - Discharge Plan *PRESCRIPTION DRUG MONITORING PROGRAM REVIEWED*: Not Applicable *COPY OF PRESCRIPTION DRUG MONITORING REPORT IN PATIENT ED: Not Applicable Home Medications: Home Meds Lisinopril 40 mg PO DAILY 06/09/17 [History] DULoxetine HCl [Cymbalta] 120 mg PO DAILY 11/25/20 [History] Gabapentin [Neurontin] 300 mg PO 08,14 11/25/20 [History] Gabapentin [Neurontin] 600 mg PO BEDTIME 11/25/20 [History] Hydrocodone/Acetaminophen [Hydrocodone-Acetamin 5-325 mg] 1 each PO Q4HR PRN 11/25/20 [History] Metoprolol Succinate [Toprol XL] 25 mg PO DAILY 11/25/20 [History] atorvaSTATin Calcium [Lipitor] 10 mg PO DAILY 11/25/20 [History] clonazePAM [Klonopin] 1 mg PO BID 11/25/20 [History] hydroCHLOROthiazide [Hydrochlorothiazide] 50 mg PO DAILY 11/25/20 [History] Ibuprofen [Advil] 600 mg PO BID PRN 01/03/21 [History] Multivitamin [Multi-Vitamin Daily] 1 tab PO DAILY 01/03/21 [History] busPIRone HCl [Buspirone HCl] 15 mg PO TID 01/03/21 [History] metFORMIN HCl [Metformin HCl] 1,000 mg PO BIDAC 01/04/21 [History] Forms: ED Department Discharge Referrals: Layla Leonardo COMMERCIAL LENDING ASSISTANT [Primary Care Provider] - - Discharge Summary/Plan Comment DC Time >30 min.: Yes (waiting for bed confirmation. ) - General Info Date of Service: 01/04/21 Admission Dx/Problem (Free Text: Low back pain exacerbation/right sided sciatica Subjective Update: Was feeling improved, pain returned suddenly while trying to put on his shoes Numeric/FACES Score: 10 - Review of Systems General: Reports: No Symptoms HEENT: Reports: No Symptoms Pulmonary: Reports: No Symptoms Cardiovascular: Reports: No Symptoms Genitourinary: Reports: No Symptoms. Denies: Incontinence Musculoskeletal: Reports: Back Pain (low), Leg Pain (right) Skin: Reports: No Symptoms Neurological: Reports: Numbness (right leg), Difficulty Walking. Denies: Weakness Psychiatric: Reports: No Symptoms - Patient Data Vitals - Most Recent: Last Vital Signs Temp 36.5 C 01/04/21 07:28 Pulse 80 01/04/21 07:29 Resp 20 01/04/21 07:28 BP 114/71 01/04/21 07:29 Pulse Ox 93 L 01/04/21 07:28 Weight - Most Recent: 156 kg Lab Results - Last 24 hrs: Laboratory Results - last 24 hr 01/04/21 01/04/21 Range/Units 06:56 06:56 WBC 8.4 (4.0-10.2) K/uL RBC 5.08 (4.33-5.41) M/uL Hgb 15.2 (13.1-16.8) g/dL Hct 42.7 (39.0-49.0) % MCV 84.1 (84.0-98.0) fL MCH 29.9 (28.2-33.3) pg MCHC 35.6 (31.7-36.0) g/dL RDW 11.8 (11.2-14.1) % Plt Count 197 (150-350) K/uL Neut % (Auto) 85.6 H (45.0-80.0) % Lymph % (Auto) 13.3 (10.0-50.0) % [place] % (Auto) 0.8 L (2.0-14.0) % Eos % (Auto) 0.2 (0.0-5.0) % Baso % (Auto) 0.1 (0.0-2.0) % Neut # (Auto) 7.15 H (1.40-7.00) K/uL Lymph # (Auto) 1.11 (0.50-3.50) K/uL [place] # (Auto) 0.07 (0.00-1.00) K/uL Eos # (Auto) 0.02 (0.00-0.50) K/uL Baso # (Auto) 0.01 (0.00-0.20) K/uL Sodium 138 (136-145) mmol/L Potassium 4.8 (3.5-5.1) mmol/L Chloride 102 (98-107) mmol/L Carbon Dioxide 25.5 (21.0-32.0) mmol/L BUN 24 H (7-18) mg/dL Creatinine 0.98 (0.51-1.17) mg/dL Est Cr Clr Drug Dosing 131.73 mL/min Estimated GFR (MDRD) > 60 mL/min Glucose 146 H (70-99) mg/dL Calcium 8.9 (8.5-10.1) mg/dL Magnesium 2.0 (1.8-2.4) mg/dL Total Bilirubin 0.5 (0.2-1.0) mg/dL AST 31 (15-37) U/L ALT 72 (12-78) U/L Alkaline Phosphatase 46 (46-116) IU/L Total Protein 7.5 (6.4-8.2) g/dL Albumin 3.9 (3.4-5.0) g/dL Med Orders - Current: Current Medications Acetaminophen (Acetaminophen 325 Mg Tab) 650 mg PO Q4H PRN PRN Reason: analgesia/fever Atorvastatin Calcium (Atorvastatin 10 Mg Tab) 10 mg PO DAILY [facility] [place] Last Admin: 01/04/21 07:29 Dose: 10 mg Documented by: Buspirone HCl (Buspirone 15 Mg Tab) 15 mg PO TID [facility] [place] Last Admin: 01/04/21 11:42 Dose: 15 mg Documented by: Duloxetine HCl (Duloxetine 30 Mg Cap) 120 mg PO DAILY [facility] [place] Last Admin: 01/04/21 07:28 Dose: 120 mg Documented by: Gabapentin (Gabapentin 300 Mg Cap) 600 mg PO BEDTIME [facility] [place] Last Admin: 01/04/21 00:47 Dose: 600 mg Documented by: Gabapentin (Gabapentin 300 Mg Cap) 300 mg PO BID@0800,1400 [facility] [place] Last Admin: 01/04/21 07:29 Dose: 300 mg Documented by: Hydrochlorothiazide (Hydrochlorothiazide 25 Mg Tab) 50 mg PO DAILY [facility] [place] Last Admin: 01/04/21 07:29 Dose: 50 mg Documented by: Sodium Chloride (Normal Saline) 1,000 mls @ 75 mls/hr IV ASDIRECTED [facility] [place] Stop: 01/04/21 13:04 Last Admin: 01/04/21 00:47 Dose: 75 mls/hr Documented by: Ketorolac Tromethamine (Ketorolac 30 Mg/Ml Sdv) 30 mg IVPUSH Q6H PRN PRN Reason: Pain Stop: 01/08/21 23:45 Last Admin: 01/04/21 11:42 Dose: 30 mg Documented by: Lisinopril (Lisinopril 20 Mg Tab) 40 mg PO DAILY [facility] [place] Last Admin: 01/04/21 07:29 Dose: 40 mg Documented by: Metformin HCl (Metformin 500 Mg Tab) 1,000 mg PO BIDMEALS [facility] [place] Last Admin: 01/04/21 07:30 Dose: 1,000 mg Documented by: Metoprolol Succinate (Metoprolol Succinate 25 Mg Tab.Er) 25 mg PO DAILY [facility] [place] Last Admin: 01/04/21 07:29 Dose: 25 mg Documented by: Morphine Sulfate (Morphine 4 Mg/Ml Syringe) 4 mg IVPUSH Q2H PRN PRN Reason: Pain Last Admin: 01/04/21 12:23 Dose: 4 mg Documented by: Sodium Chloride (Sodium Chloride 0.9% 10 Ml Syringe) 10 ml FLUSH ASDIRECTED PRN PRN Reason: Keep Vein Open Last Admin: 01/04/21 12:24 Dose: 10 ml Documented by: Discontinued Medications Diazepam (Diazepam 5 Mg Tab) 5 mg PO ONETIME ONE Stop: 01/03/21 23:48 Last Admin: 01/04/21 00:47 Dose: 5 mg Documented by: Ketorolac Tromethamine (Ketorolac 30 Mg/Ml Sdv) 30 mg IVPUSH ONETIME ONE Stop: 01/03/21 22:54 Last Admin: 01/03/21 23:07 Dose: 30 mg Documented by: Methylprednisolone Sodium Succinate (Methylprednisolone Sodium Succinate 125 Mg/2 Ml Sdv) 125 mg IVPUSH ONETIME ONE Stop: 01/03/21 22:53 Last Admin: 01/03/21 23:07 Dose: 125 mg Documented by: - Exam General: Reports: Alert, Oriented, Severe Distress (after re-triggering low back pain/sciatic complaint) HEENT: Reports: Pupils Equal, Pupils Reactive, EOMI, Mucous Membr. Moist/[place] Neck: Reports: Supple Lungs: Reports: Clear to Auscultation, Normal Respiratory Effort Cardiovascular: Reports: Regular Rate, Regular Rhythm GI/Abdominal Exam: Soft, Non-Tender (Male) Exam: Deferred Rectal (Males) Exam: Deferred Back Exam: Reports: Other (no specific focal tenderness noted with palpation of lumbar spine/adjacent tissue) Extremities: Normal Capillary Refill, Other (Subjective numbness anterior right velez. Strength appears to be equal, however movement causes increased low back pain/leg pain. ) Skin: Reports: Warm, Dry, Intact Neurological: Reports: No New Focal Deficit, Normal Speech, Normal Tone, Strength Equal Bilateral Psy/Mental Status: Reports: Anxious
[2021-01-04] MEDS ORDERED: Morphine 4 MG/ML Syringe IVPUSH ONE (13:08)
[2021-01-04] MEDS ORDERED: Ondansetron 4 MG/2 ML SDV IVPUSH ONE (13:09)
== END 2021-01-04 14:15 ==
LOC: LL.ED 22:25 → LL.MS 23:00
PROVIDERS: ADMIT Emergency Medicine; ATTEND Emergency Medicine
DX: G89.29 Other chronic pain (principal); M54.41 Lumbago with sciatica, right side; E78.00 Pure hypercholesterolemia, unspecified; I10 Essential (primary) hypertension; E11.9 Type 2 diabetes mellitus without complications; E66.9 Obesity, unspecified; I25.10 Atherosclerotic heart disease of native coronary artery without angina pectoris; I25.2 Old myocardial infarction; F17.210 Nicotine dependence, cigarettes, uncomplicated; F41.8 Other specified anxiety disorders; F41.0 Panic disorder [episodic paroxysmal anxiety]; K58.9 Irritable bowel syndrome, unspecified; E78.5 Hyperlipidemia, unspecified; Z88.0 Allergy status to penicillin; Z79.899 Other long term (current) drug therapy; Z98.890 Other specified postprocedural states; Z68.41 Body mass index [BMI] 40.0-44.9, adult
CPT/HCPCS: 36415; 80053; 83735; 85025; 96374; 96375; 96376; 99217; 99219; 99284; A9270-GY; G0378; J1885; J2270; J2930; J7030